=== PATIENT | male | born 1985 | race Caucasian/White ===

== ENCOUNTER 2018-10-05 13:33 | Emergency (ER) | payer BC, MEDICAID ==
[2018-10-05] MEDS ORDERED: 50% Dextrose in Water 50 ML Syringe IVPUSH ONE (13:45)
[2018-10-05] MEDS ORDERED: 50% Dextrose in Water 50 ML Syringe ONE (13:48)
[2018-10-05] MEDS ORDERED: Sodium Chloride 0.9% 1,000 ML IV SCH (13:50)
--- NOTE | 2018-10-05 14:39 | EDM.PDOC ---
ED HPI GENERAL MEDICAL PROBLEM - General Chief Complaint: Neurological Problem Stated Complaint: UNRESPONSIVE Time Seen by Provider: 10/05/18 13:33 Source of Information: Reports: Patient History Limitations: Reports: No Limitations - History of Present Illness INITIAL COMMENTS - FREE TEXT/NARRATIVE: c/o altered mental status pt walked into [facility], sat at a table for 15 min, was swaying slightly, not responding to voice workers called EMS who found him covered in sweat, gave his name but no other information HR 110 with inc'd BP on arrival at ED BS 58 here, pt became fully alert after 1 amp D50, 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[employer], 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, does not remember going to [facility] for lunch lives alone saw PCP in [place] 1wk ago, plan was to change his insulin altho he does not have the new insulin yet takes insulin (combined) 30u BID currently, no other meds, h/o DMI since 2006 has had "1 or 2" other episodes of hypoglycemia, changing insulin was intended to address this issue pt texting, talking and feeling quite normal now while labs are pending pt states he used street drugs in the past, none in 11y - Related Data Allergies Allergy/AdvReac Type Severity Reaction Status Date / Time No Known Allergies Allergy Verified 10/05/18 13:59 Home Meds: Home Meds Insulin Detemir [Levemir] 30 unit SUBCUT BID 10/05/18 [History] Potassium Chloride 20 meq PO BID #6 tablet.er 10/05/18 [Rx] ED ROS GENERAL - Review of Systems Review Of Systems: See Below Constitutional: Reports: No Symptoms, Other (no sxs once he was alert, not been ill, has been eating and drinking by his report altho cannot give specifics) HEENT: Reports: No Symptoms Respiratory: Reports: No Symptoms Cardiovascular: Reports: No Symptoms Endocrine: Reports: No Symptoms GI/Abdominal: Reports: No Symptoms : Reports: No Symptoms Musculoskeletal: Reports: No Symptoms Skin: Reports: No Symptoms Neurological: Reports: No Symptoms Psychiatric: Reports: No Symptoms Hematologic/Lymphatic: Reports: No Symptoms Immunologic: Reports: No Symptoms ED EXAM, GENERAL - Physical Exam Exam: See Below Exam Limited By: Altered Mental Status General Appearance: WD/WN Eye Exam: Bilateral Eye: Other (pupils 6/6mm, symmetric) Ears: Normal External Exam Nose: Normal Inspection, Normal Mucosa Throat/Mouth: Normal Inspection, Normal Lips, Normal Voice, No Airway Compromise , Other (poor dentition) Head: Atraumatic, Normocephalic Neck: Normal Inspection, Supple, Non-Tender, Full Range of Motion. No: Lymphadenopathy (R), Lymphadenopathy (L) Respiratory/Chest: No Respiratory Distress, Lungs Clear, Normal Breath Sounds, No Accessory Muscle Use, Chest Non-Tender Cardiovascular: Regular Rate, Rhythm, No Edema, No Gallop, No JVD, No Murmur, No Rub GI/Abdominal: Normal Bowel Sounds, Soft, Non-Tender, No Organomegaly, No Distention Back Exam: Normal Inspection, Full Range of Motion. No: CVA Tenderness (R), CVA Tenderness (L) Extremities: Normal Inspection, Normal Range of Motion, Non-Tender, No Pedal Edema Neurological: Alert, Oriented, CN II-XII Intact, Normal Cognition, Normal Reflexes, No Motor/Sensory Deficits Psychiatric: Normal Affect, Normal Mood Skin Exam: Warm, Dry, Intact, Normal Color, No Rash Lymphatic: No Adenopathy Course - Vital Signs Last Recorded V/S: Last Vital Signs Temp 36.6 C 10/05/18 13:35 Pulse 116 H 10/05/18 13:35 Resp 16 10/05/18 13:35 BP 162/80 H 10/05/18 13:35 Pulse Ox 98 10/05/18 13:35 - Orders/Labs/Meds Orders: Active Orders 24 hr Category Date Time Status EKG Documentation Completion [RC] ASDIRECTED Care 10/05/18 13:37 Active CULTURE BLOOD [BC] Routine Lab 10/05/18 13:45 Received CULTURE BLOOD [BC] Stat Lab 10/05/18 13:40 Received Sodium Chloride 0.9% [Normal Saline] 1,000 ml Med 10/05/18 13:50 Active IV ASDIRECTED EKG 12 Lead [EK] Routine Ther 10/05/18 13:37 Ordered Medication Orders Sodium Chloride (Normal Saline) 1,000 mls @ 999 mls/hr IV ASDIRECTED DAVID Stop: 10/09/18 15:00 Last Admin: 10/05/18 13:50 Dose: 999 mls/hr Labs: Laboratory Tests 10/05/18 10/05/18 10/05/18 Range/Units 13:40 13:40 13:40 WBC 10.2 (4.5-12.0) X10-3/uL RBC 4.69 (4.30-5.75) x10(6)uL Hgb 14.8 (11.5-15.5) g/dL Hct 43.9 (30.0-51.3) % MCV 93.6 (80-96) fL MCH 31.5 (27.7-33.6) pg MCHC 33.6 (32.2-35.4) g/dL RDW 12.1 (11.5-15.5) % Plt Count 225 (125-369) X10(3)uL MPV 8.7 (7.4-10.4) fL Neut % (Auto) 69.3 (46-82) % Lymph % (Auto) 21.9 (13-37) % [place] % (Auto) 7.9 (4-12) % Eos % (Auto) 0 L (1.0-5.0) % Baso % (Auto) 1 (0-2) % Neut # (Auto) 7.1 (1.6-8.3) # Lymph # (Auto) 2.2 (0.6-5.0) # [place] # (Auto) 0.8 (0.0-1.3) # Eos # (Auto) 0.0 (0.0-0.8) # Baso # (Auto) 0.1 (0.0-0.2) # Sodium (135-145) mmol/L Potassium (3.5-5.3) mmol/L Chloride (100-110) mmol/L Carbon Dioxide (21-32) mmol/L BUN (7-18) mg/dL Creatinine (0.70-1.30) mg/dL Est Cr Clr Drug Dosing Estimated GFR (MDRD) (>60) BUN/Creatinine Ratio (9-20) Glucose (80-116) mg/dL POC Glucose (80-116) mg/dL Lactic Acid 1.5 (0.4-2.2) mmol/L Calcium (8.6-10.2) mg/dL Total Bilirubin (0.1-1.3) mg/dL AST (5-25) IU/L ALT (12-36) U/L Alkaline Phosphatase (56-112) IU/L Troponin I < 0.017 L (<0.017-0.056) ng/mL C-Reactive Protein < 0.2 L (0.5-0.9) mg/dL Total Protein (6.0-8.0) g/dL Albumin (3.5-5.2) g/dL Globulin g/dL Albumin/Globulin Ratio Urine Color (YELLOW) Urine Appearance (CLEAR) Urine pH (5.0-6.5) Ur Specific [place] (1.010-1.025) Urine Protein (NEGATIVE) mg/dL Urine Glucose (UA) (NEGATIVE) mg/dL Urine Ketones (NEGATIVE) mg/dL Urine Occult Blood (NEGATIVE) Urine Nitrite (NEGATIVE) Urine Bilirubin (NEGATIVE) Urine Urobilinogen (NEGATIVE) mg/dL Ur Leukocyte Esterase (NEGATIVE) Urine RBC (0) Urine WBC (0) Ur Squamous Epith Cells (NS,R,O) Urine Bacteria (NS) Urine Opiates Screen (NEGATIVE) Ur Oxycodone Screen (NEGATIVE) Ur Propoxyphene Screen (NEGATIVE) Ur Barbituates Screen (NEGATIVE) Ur Tricyclics Screen (NEGATIVE) Ur Phencyclidine Scrn (NEGATIVE) Ur Amphetamine Screen (NEGATIVE) Urine MDMA Screen (NEGATIVE) U Benzodiazepines Scrn (NEGATIVE) U Cocaine Metab Screen (NEGATIVE) U Marijuana (THC) Screen (NEGATIVE) 10/05/18 10/05/18 10/05/18 Range/Units 13:40 13:43 13:43 WBC (4.5-12.0) X10-3/uL RBC (4.30-5.75) x10(6)uL Hgb (11.5-15.5) g/dL Hct (30.0-51.3) % MCV (80-96) fL MCH (27.7-33.6) pg MCHC (32.2-35.4) g/dL RDW (11.5-15.5) % Plt Count (125-369) X10(3)uL MPV (7.4-10.4) fL Neut % (Auto) (46-82) % Lymph % (Auto) (13-37) % [place] % (Auto) (4-12) % Eos % (Auto) (1.0-5.0) % Baso % (Auto) (0-2) % Neut # (Auto) (1.6-8.3) # Lymph # (Auto) (0.6-5.0) # [place] # (Auto) (0.0-1.3) # Eos # (Auto) (0.0-0.8) # Baso # (Auto) (0.0-0.2) # Sodium 144 (135-145) mmol/L Potassium 2.9 L (3.5-5.3) mmol/L Chloride 104 (100-110) mmol/L Carbon Dioxide 30 (21-32) mmol/L BUN 14 (7-18) mg/dL Creatinine 1.1 (0.70-1.30) mg/dL Est Cr Clr Drug Dosing TNP Estimated GFR (MDRD) > 60 (>60) BUN/Creatinine Ratio 12.7 (9-20) Glucose 53 L (80-116) mg/dL POC Glucose (80-116) mg/dL Lactic Acid (0.4-2.2) mmol/L Calcium 9.3 (8.6-10.2) mg/dL Total Bilirubin 0.2 (0.1-1.3) mg/dL AST 26 H (5-25) IU/L ALT 37 H (12-36) U/L Alkaline Phosphatase 85 (56-112) IU/L Troponin I (<0.017-0.056) ng/mL C-Reactive Protein (0.5-0.9) mg/dL Total Protein 7.7 (6.0-8.0) g/dL Albumin 4.0 (3.5-5.2) g/dL Globulin 3.7 g/dL Albumin/Globulin Ratio 1.1 Urine Color Yellow (YELLOW) Urine Appearance Slightly cloudy (CLEAR) Urine pH 6.0 (5.0-6.5) Ur Specific [place] 1.015 (1.010-1.025) Urine Protein 30 H (NEGATIVE) mg/dL Urine Glucose (UA) Normal (NEGATIVE) mg/dL Urine Ketones Negative (NEGATIVE) mg/dL Urine Occult Blood Negative (NEGATIVE) Urine Nitrite Negative (NEGATIVE) Urine Bilirubin Small H (NEGATIVE) Urine Urobilinogen 1 H (NEGATIVE) mg/dL Ur Leukocyte Esterase Negative (NEGATIVE) Urine RBC 0-5 (0) Urine WBC 0-5 (0) Ur Squamous Epith Cells Few H (NS,R,O) Urine Bacteria Few H (NS) Urine Opiates Screen Negative (NEGATIVE) Ur Oxycodone Screen Negative (NEGATIVE) Ur Propoxyphene Screen Negative (NEGATIVE) Ur Barbituates Screen Negative (NEGATIVE) Ur Tricyclics Screen Negative (NEGATIVE) Ur Phencyclidine Scrn Negative (NEGATIVE) Ur Amphetamine Screen Negative (NEGATIVE) Urine MDMA Screen Negative (NEGATIVE) U Benzodiazepines Scrn Negative (NEGATIVE) U Cocaine Metab Screen Negative (NEGATIVE) U Marijuana (THC) Screen Negative (NEGATIVE) 10/05/18 10/05/18 Range/Units 13:47 14:45 WBC (4.5-12.0) X10-3/uL RBC (4.30-5.75) x10(6)uL Hgb (11.5-15.5) g/dL Hct (30.0-51.3) % MCV (80-96) fL MCH (27.7-33.6) pg MCHC (32.2-35.4) g/dL RDW (11.5-15.5) % Plt Count (125-369) X10(3)uL MPV (7.4-10.4) fL Neut % (Auto) (46-82) % Lymph % (Auto) (13-37) % [place] % (Auto) (4-12) % Eos % (Auto) (1.0-5.0) % Baso % (Auto) (0-2) % Neut # (Auto) (1.6-8.3) # Lymph # (Auto) (0.6-5.0) # [place] # (Auto) (0.0-1.3) # Eos # (Auto) (0.0-0.8) # Baso # (Auto) (0.0-0.2) # Sodium (135-145) mmol/L Potassium (3.5-5.3) mmol/L Chloride (100-110) mmol/L Carbon Dioxide (21-32) mmol/L BUN (7-18) mg/dL Creatinine (0.70-1.30) mg/dL Est Cr Clr Drug Dosing Estimated GFR (MDRD) (>60) BUN/Creatinine Ratio (9-20) Glucose (80-116) mg/dL POC Glucose 56 L 116 (80-116) mg/dL Lactic Acid (0.4-2.2) mmol/L Calcium (8.6-10.2) mg/dL Total Bilirubin (0.1-1.3) mg/dL AST (5-25) IU/L ALT (12-36) U/L Alkaline Phosphatase (56-112) IU/L Troponin I (<0.017-0.056) ng/mL C-Reactive Protein (0.5-0.9) mg/dL Total Protein (6.0-8.0) g/dL Albumin (3.5-5.2) g/dL Globulin g/dL Albumin/Globulin Ratio Urine Color (YELLOW) Urine Appearance (CLEAR) Urine pH (5.0-6.5) Ur Specific [place] (1.010-1.025) Urine Protein (NEGATIVE) mg/dL Urine Glucose (UA) (NEGATIVE) mg/dL Urine Ketones (NEGATIVE) mg/dL Urine Occult Blood (NEGATIVE) Urine Nitrite (NEGATIVE) Urine Bilirubin (NEGATIVE) Urine Urobilinogen (NEGATIVE) mg/dL Ur Leukocyte Esterase (NEGATIVE) Urine RBC (0) Urine WBC (0) Ur Squamous Epith Cells (NS,R,O) Urine Bacteria (NS) Urine Opiates Screen (NEGATIVE) Ur Oxycodone Screen (NEGATIVE) Ur Propoxyphene Screen (NEGATIVE) Ur Barbituates Screen (NEGATIVE) Ur Tricyclics Screen (NEGATIVE) Ur Phencyclidine Scrn (NEGATIVE) Ur Amphetamine Screen (NEGATIVE) Urine MDMA Screen (NEGATIVE) U Benzodiazepines Scrn (NEGATIVE) U Cocaine Metab Screen (NEGATIVE) U Marijuana (THC) Screen (NEGATIVE) Meds: Medications Generic Name Dose Route Start Last Admin Trade Name Freq PRN Reason Stop Dose Admin Sodium Chloride 1,000 mls @ 999 mls/hr 10/05/18 13:50 10/05/18 13:50 Normal Saline IV 10/09/18 15:00 999 mls/hr ASDIRECTED DAVID Administration Discontinued Medications Generic Name Dose Route Start Last Admin Trade Name Freq PRN Reason Stop Dose Admin Dextrose/Water Confirm 10/05/18 13:48 10/05/18 14:06 Dextrose 50% In Water Administered 10/05/18 13:49 Not Given Dose 50 ml .ROUTE .STK-MED ONE Dextrose/Water 50 ml 10/05/18 13:45 10/05/18 13:50 Dextrose 50% In Water IVPUSH 10/05/18 13:46 50 ml ONETIME ONE Administration Potassium Chloride 40 meq 10/05/18 14:41 10/05/18 15:00 Klor-Con M20 PO 10/05/18 14:42 40 meq ONETIME ONE Administration - Re-Assessments/Exams Free Text/Narrative Re-Assessment/Exam: 10/05/18 15:29 continues to feel fine K 2.9, pt reports it has been low in the past mild inc'd LFTs, pt does not recall inc'd levels in the past, understands he needs to discuss this with his physician he plans on getting his newly rx'ed insulin this weekend (in 2d), told that he should d/w today's event with his doctor in the meantime says he still smokes altho trying to quit, no current use of street drugs or alcohol recalls he did eat an egg roll and a hamburger for bfast states that he has had both high and low swings of BS in past, last A1C 7.8, his goal is less than 7, A1C was 12-13 from 2y ago Departure - Departure Time of Disposition: 15:31 Disposition: Home, Self-Care 01 Condition: Good Clinical Impression: Hypoglycemia, Hypokalemia, Elevated liver function tests - Discharge Information *PRESCRIPTION DRUG MONITORING PROGRAM REVIEWED*: Not Applicable *COPY OF PRESCRIPTION DRUG MONITORING REPORT IN PATIENT NADYA: Not Applicable Prescriptions: Potassium Chloride 20 meq PO BID #6 tablet.er Instructions: Liver Function Tests, Hypokalemia, Hypoglycemia Referrals: PCP,None [Primary Care Provider] - Forms: ED Department Discharge Additional Instructions: Call your doctor to report today's low glucose and any additional recommendations besides changing your insulin. Eat 3 meals daily. Decrease your evening dose of insulin by 1/2. To replace your potassium, take potassium 20 meq 1 tab 2 times a day for 3 days. You do have a mild increase in your liver tests, which can sometimes indicate a serious health concern such as hepatitis. You should discuss this further with your physician who may want to run additional tests. May continue usual activities. May work tomorrow. Return to ED, however, if you are feeling worse. Call your Physician or Return to Emergency Department if: * Your condition worsens in any way. * You develop fever greater than 100.4. * You have vomitting that does not stop with medications. * You have pain that is not controlled with medications. - My Orders Last 24 Hours: My Active Orders 10/05/18 13:37 EKG Documentation Completion [RC] ASDIRECTED EKG 12 Lead [EK] Routine 10/05/18 13:40 CULTURE BLOOD [BC] Stat 10/05/18 13:45 CULTURE BLOOD [BC] Routine 10/05/18 13:50 Sodium Chloride 0.9% [Normal Saline] 1,000 ml IV ASDIRECTED - Assessment/Plan Last 24 Hours: My Active Orders 10/05/18 13:37 EKG Documentation Completion [RC] ASDIRECTED EKG 12 Lead [EK] Routine 10/05/18 13:40 CULTURE BLOOD [BC] Stat 10/05/18 13:45 CULTURE BLOOD [BC] Routine 10/05/18 13:50 Sodium Chloride 0.9% [Normal Saline] 1,000 ml IV ASDIRECTED
[2018-10-05] MEDS ORDERED: Potassium Chloride 20 MEQ Tab.ER PO ONE (14:41)
== END 2018-10-05 16:10 | disposition home or self-care (01) ==
LOC: FB.ED 13:33
DX: E10.649 Type 1 diabetes mellitus with hypoglycemia without coma (principal); E87.6 Hypokalemia; R79.89 Other specified abnormal findings of blood chemistry
CPT/HCPCS: 36415; 80053; 80305; 81001; 82962; 83605; 84484; 85025; 86140; 87040; 96361; 96374; 99285; A9270; J7030